=== PATIENT | female | born 1985 | race Caucasian/White ===

== ENCOUNTER 2017-03-17 22:30 | Emergency (ER) | payer OTHER ==
[~2017-03-17] VITALS: Ht 165.1 cm; Wt 55.6 kg
[~2017-03-17 22:30] MED LIST: CIPRO500 MG PO; LAMICTAL100 MG PO; MOTRIN600 MG PO; SEROQUEL50 MG PO
[2017-03-18] MEDS ORDERED: TRAMADOL HCL50 MG PO (00:04)
[2017-03-18] MEDS ORDERED: CLINDAMYCIN HC150 MG PO (00:04)
[2017-03-18 00:17] VITALS: BP 117/76
== END 2017-03-18 00:18 | disposition home or self-care (01) ==
LOC: EME 22:30
DX: K08.89 Other specified disorders of teeth and supporting structures (principal); G89.29 Other chronic pain; M25.511 Pain in right shoulder; K02.9 Dental caries, unspecified; Z88.0 Allergy status to penicillin; F17.200 Nicotine dependence, unspecified, uncomplicated
CPT/HCPCS: 99281; 99283

== ENCOUNTER 2017-07-06 11:50 | Emergency (ER) | payer OTHER ==
[~2017-07-06] VITALS: Ht 165.1 cm; Wt 56.0 kg
[~2017-07-06 11:50] MED LIST changes: +CLINDAMYCIN HC150 MG PO; +TRAMADOL HCL50 MG PO
[2017-07-06 16:56] LABS: EOSINOPHIL COUNT 0.1 K/uL (0-0.3); HEMATOCRIT 40.7 % (36.0-46.0); IMMATURE GRANULOCYTE (%) 0.5 % (0.0-0.7); IMMATURE GRANULOCYTE COUNT 0.1 K/uL; INSTRUMENT ABS NEUTROPHIL CT 8.7 K/uL; LYMPHOCYTE COUNT 2.5 K/uL (1.0-2.8); MCH 30.7 PG (29.0-34.0); MCHC 34.4 G/DL (30.0-36.0); MCV 89.3 FL (83-99); MEAN PLAT.VOLUME 11.3 uM^3 (9.5-12.4); MONOCYTE (%) 8.4 % (3-12); NEUTROPHIL (%) 70.1 % (45-76); NEUTROPHIL COUNT 8.7 K/uL (1.8-6.4); PLATELET COUNT 247 K/uL (156-360); RBC DIS.WIDTH-CV 12.2 % (11.8-14.6); RBC DIS.WIDTH-SD 39.8 % (39-53); RED BLOOD COUNT 4.56 M/uL (3.80-5.20); WHITE BLOOD COUNT 12.4 K/uL (4.1-10.2)
[2017-07-06 17:03] LABS: CHLORIDE 106 mEq/L (99-109); POTASSIUM 4.2 mEq/L (3.7-5.4); SODIUM 141 mEq/L (136-147)
[2017-07-06 17:05] LABS: GLUCOSE 69 mg/dL (70-99)
[2017-07-06 17:06] LABS: ANION GAP 11 MEQ/L (2-14)
[2017-07-06 17:09] LABS: GFR ESTIMATE (CALCULATED) > 59 mL/min/
[2017-07-06 17:10] LABS: UREA NITROGEN (BUN) 15 mg/dL (9-23)
[2017-07-06] MEDS ORDERED: INDOCIN50 MG PO (18:16)
[2017-07-06] MEDS ORDERED: CLINDAMYCIN HC300 MG PO (18:16)
[2017-07-06] MEDS ORDERED: ULTRACET1 TABLET PO (18:17)
[2017-07-06 19:14] VITALS: BP 105/71
== END 2017-07-06 19:15 | disposition home or self-care (01) ==
LOC: EME 11:50
PROVIDERS: Physician Assistant
DX: K02.9 Dental caries, unspecified (principal); K04.7 Periapical abscess without sinus; F17.200 Nicotine dependence, unspecified, uncomplicated; I10 Essential (primary) hypertension; F32.9 Major depressive disorder, single episode, unspecified; Z88.0 Allergy status to penicillin
CPT/HCPCS: 70360; 80048; 81003; 83605; 85025; 86735 90; 87040; 87798 90; 99281; 99284; J1100; J1885; J7030

== ENCOUNTER 2017-09-30 19:24 | Inpatient (IN) | payer OTHER ==
[~2017-09-30] VITALS: Ht 165.1 cm; Wt 56.6 kg
[~2017-09-30 19:24] MED LIST changes: +CLINDAMYCIN HC300 MG PO; +INDOCIN50 MG PO; -LAMICTAL100 MG PO; +LAMICTAL200 MG PO; +ULTRACET1 TABLET PO
[2017-09-30 21:39] LABS: HEMATOCRIT 40.9 % (36.0-46.0); HEMOGLOBIN 14.3 G/DL (11.9-15.5); MCH 29.7 PG (29.0-34.0); PLATELET COUNT 293 K/uL (156-360); RBC DIS.WIDTH-CV 12.7 % (11.8-14.6); RBC DIS.WIDTH-SD 39.5 % (39-53); RED BLOOD COUNT 4.81 M/uL (3.80-5.20); WHITE BLOOD COUNT 14.6 K/uL (4.1-10.2)
[2017-09-30 21:49] LABS: CHLORIDE 109 mEq/L (99-109); POTASSIUM 3.7 mEq/L (3.7-5.4); SODIUM 136 mEq/L (136-147)
[2017-09-30 21:51] LABS: GLUCOSE 69 mg/dL (70-99)
[2017-09-30 21:54] LABS: CREATININE 0.7 mg/dL (0.6-1.3); GFR ESTIMATE (CALCULATED) > 59 mL/min/
[2017-09-30 21:55] LABS: UREA NITROGEN (BUN) 19 mg/dL (9-23)
[2017-09-30 22:03] LABS: QUANTITATIVE HCG < 4.0 MIU/ML
[2017-10-01] VITALS (8 sets, daily range): BP systolic 11–132; BP diastolic 69–91
[2017-10-01] MEDS ORDERED: IBUPROFEN800 MG PO (00:04)
[2017-10-01] MEDS ORDERED: SYNTHROID50 MCG PO (00:04)
[2017-10-01] MEDS ORDERED: CIPRO500 MG PO (00:04)
[2017-10-02 00:14] VITALS: BP 111/71
[2017-10-02 07:01] VITALS: BP 114/84
[2017-10-02 11:07] VITALS: BP 112/70
[2017-10-02 16:03] VITALS: BP 145/88
[2017-10-02 23:31] VITALS: BP 127/63
[2017-10-03 08:13] VITALS: BP 98/57
[2017-10-03] MEDS ORDERED: CLEOCIN300 MG PO (11:10)
== END 2017-10-03 16:05 | disposition home or self-care (01) | DRG 158 ==
LOC: EME 19:24 → EDOF 10-01 00:15 → 3EAST 10-01 00:15 → ENRESERV 10-01 00:22 → 3EAST 10-01 01:10
PROVIDERS: Physician Assistant
DX: K04.7 Periapical abscess without sinus (principal); L03.211 Cellulitis of face; K02.9 Dental caries, unspecified; F11.20 Opioid dependence, uncomplicated; F17.210 Nicotine dependence, cigarettes, uncomplicated; Z79.899 Other long term (current) drug therapy; Z88.0 Allergy status to penicillin
CPT/HCPCS: 70487; 80048; 84702; 85027; 87040; 99281; 99284; J1885; J2405; J3010; J7050